=== PATIENT | male | born 1960 | race American Indian/Alaskan Native ===

== ENCOUNTER 2017-12-20 19:19 | Inpatient (IN) | payer OTHER ==
[2017-12-20 21:36] LABS: Basophils % (Auto) 0.5 % (0.0-1.8); Eosinophils # (Auto) 0.1 K/mm3 (0.0-0.4); Eosinophils % (Auto) 1.3 % (0.0-4.3); Hemoglobin 14.2 gm/dl (11.8-15.2); Lymphocytes # (Auto) 1.9 K/mm3 (1.2-5.4); Lymphocytes % (Auto) 37.4 % (13.4-35.0); Mean Corpuscular HGB Conc 33 % (32-34); Mean Corpuscular Hemoglobin 27 pg (28-32); Mean Corpuscular Volume 83 fl (84-94); Monocytes # (Auto) 0.5 K/mm3 (0.0-0.8); Platelet Count 286 K/mm3 (140-440)
[2017-12-20 21:45] LABS: BUN/Creatinine Ratio 11; Blood Urea Nitrogen 11 mg/dL (9-20); Calcium 9.3 mg/dL (8.4-10.2); Hemolysis Index 10
--- NOTE | 2017-12-20 23:32 | XRay Report ---
FINAL REPORT EXAM: XR CHEST ROUTINE 2V HISTORY: Shortness of breath TECHNIQUE: Two views of the chest Comparison: None FINDINGS: Low volumes. Heart size within normal limits. No focal infiltrates or effusions. Imaged axial skeleton is unremarkable. IMPRESSION: Low volume exam. No acute cardiopulmonary disease.
--- NOTE | 2017-12-21 06:31 | Emergency Department Report ---
ED General Adult HPI - General Chief complaint: Dyspnea/Respdistress Stated complaint: KEERTHI/PYSCH Time Seen by Provider: 12/21/17 06:22 Source: patient Mode of arrival: Ambulatory Limitations: No Limitations - History of Present Illness Initial comments: This is patient states that he had anterior chest pain tingling in his upper and lower extremities associated with rapid breathing. He also said that he had recurrent shortness of breath last night associated with the chest discomfort. He states he knows he has anxiety. He also states he had sweating. He states that he is noncompliant with the Seroquel and gabapentin. He states he's never been to the doctor for chest pain before. According to the triage record he states that he is out of gabapentin and Seroquel but thinks he might have scabies. He has a history of hypothyroidism anxiety and PTSD/depression. He does not report any cardiac workup. Apparently the patient has a history of polysubstance abuse. -: Gradual, month(s) Location: chest Radiation: other (tingling in the extremities associated with shortness of breath) Quality: dull Consistency: now resolved Improves with: none Worsens with: none Associated Symptoms: denies other symptoms, chest pain Treatments Prior to Arrival: none - Related Data Allergies Allergy/AdvReac Type Severity Reaction Status Date / Time No Known Allergies Allergy Verified 12/20/17 20:37 ED Review of Systems ROS: Stated complaint: KEERTHI/PYSCH Other details as noted in HPI Constitutional: denies: chills, fever Eyes: denies: eye pain, eye discharge, vision change ENT: denies: ear pain, throat pain Respiratory: shortness of breath. denies: cough, wheezing Cardiovascular: chest pain. denies: palpitations Endocrine: no symptoms reported Gastrointestinal: denies: abdominal pain, nausea, diarrhea Genitourinary: denies: urgency, dysuria Musculoskeletal: denies: back pain, joint swelling, arthralgia Skin: denies: rash, lesions Neurological: paresthesias. denies: headache, weakness Psychiatric: other (anxiety and hyperventilation). denies: anxiety, depression Hematological/Lymphatic: denies: easy bleeding, easy bruising ED Past Medical Hx - Past Medical History Hx Hypertension: Yes Hx Psychiatric Treatment: Yes (depression, anxiety, PTSD) Additional medical history: hypothyroidism - Surgical History Additional Surgical History: bilateral knee - Social History Smoking Status: Never Smoker Substance Use Type: Alcohol, Marijuana, Methamphetamines ED Physical Exam - General Limitations: No Limitations General appearance: alert, in no apparent distress, other (resting comfortably) - Head Head exam: Present: atraumatic, normocephalic - Eye Eye exam: Present: normal appearance, PERRL, EOMI. Absent: scleral icterus - ENT ENT exam: Present: mucous membranes moist - Neck Neck exam: Present: normal inspection. Absent: tenderness, meningismus - Respiratory Respiratory exam: Present: normal lung sounds bilaterally. Absent: respiratory distress - Cardiovascular Cardiovascular Exam: Present: regular rate, normal rhythm. Absent: systolic murmur, diastolic murmur, rubs, gallop - GI/Abdominal GI/Abdominal exam: Present: soft, normal bowel sounds. Absent: distended, tenderness, guarding, rebound, rigid - Rectal Rectal exam: Present: deferred - Extremities Exam Extremities exam: Present: normal inspection - Back Exam Back exam: Present: normal inspection - Neurological Exam Neurological exam: Present: alert, oriented X3, CN II-XII intact. Absent: motor sensory deficit - Psychiatric Psychiatric exam: Present: normal affect, normal mood - Skin Skin exam: Present: warm, dry, intact, normal color. Absent: rash ED Course Vital Signs 12/20/17 12/20/17 12/21/17 20:13 20:37 07:04 Temperature 98.4 F 98.4 F Pulse Rate 88 87 Respiratory 18 18 Rate Blood Pressure 123/80 123/80 Blood Pressure [Left] O2 Sat by Pulse 100 100 98 Oximetry 12/21/17 12/21/17 12/21/17 07:05 07:30 09:35 Temperature 97.6 F 97.7 F Pulse Rate 70 77 71 Respiratory 18 12 21 Rate Blood Pressure 125/80 Blood Pressure 125/80 109/77 [Left] O2 Sat by Pulse 98 99 98 Oximetry - Reevaluation(s) Reevaluation #1: Patient will be admitted further evaluation of his chest pain to the hospital service. 12/21/17 08:03 Reevaluation #2: Discussed with Dr. Simental, the hospitalist. She will admit. 12/21/17 09:57 ED Medical Decision Making - Lab Data Result diagrams: 12/20/17 21:11 12/20/17 21:11 Laboratory Results - last 24 hr 12/20/17 12/20/17 21:11 21:11 WBC 5.1 RBC 5.20 H Hgb 14.2 Hct 43.0 MCV 83 L MCH 27 L MCHC 33 RDW 14.0 Plt Count 286 Lymph % (Auto) 37.4 H Pender % (Auto) 9.0 H Eos % (Auto) 1.3 Baso % (Auto) 0.5 Lymph # 1.9 Pender # 0.5 Eos # 0.1 Baso # 0.0 Seg Neutrophils % 51.8 Seg Neutrophils # 2.6 Sodium 142 Potassium 4.1 Chloride 99.2 Carbon Dioxide 31 H Anion Gap 16 BUN 11 Creatinine 1.0 Estimated GFR > 60 BUN/Creatinine Ratio 11 Glucose 91 Calcium 9.3 Laboratory Results - last 24 hr 12/20/17 12/20/17 12/21/17 21:11 21:11 07:42 WBC 5.1 RBC 5.20 H Hgb 14.2 Hct 43.0 MCV 83 L MCH 27 L MCHC 33 RDW 14.0 Plt Count 286 Lymph % (Auto) 37.4 H Pender % (Auto) 9.0 H Eos % (Auto) 1.3 Baso % (Auto) 0.5 Lymph # 1.9 Pender # 0.5 Eos # 0.1 Baso # 0.0 Seg Neutrophils % 51.8 Seg Neutrophils # 2.6 PT 11.8 L INR 0.83 L APTT 26.5 D-Dimer 199.87 Sodium 142 Potassium 4.1 Chloride 99.2 Carbon Dioxide 31 H Anion Gap 16 BUN 11 Creatinine 1.0 Estimated GFR > 60 BUN/Creatinine Ratio 11 Glucose 91 Calcium 9.3 Magnesium Total Bilirubin Direct Bilirubin Indirect Bilirubin AST ALT Alkaline Phosphatase Total Creatine Kinase CK-MB (CK-2) CK-MB (CK-2) Rel Index Troponin T NT-Pro-B Natriuret Pep Total Protein Albumin Albumin/Globulin Ratio 12/21/17 07:42 WBC RBC Hgb Hct MCV MCH MCHC RDW Plt Count Lymph % (Auto) Pender % (Auto) Eos % (Auto) Baso % (Auto) Lymph # Pender # Eos # Baso # Seg Neutrophils % Seg Neutrophils # PT INR APTT D-Dimer Sodium Potassium Chloride Carbon Dioxide Anion Gap BUN Creatinine Estimated GFR BUN/Creatinine Ratio Glucose Calcium Magnesium 1.90 Total Bilirubin 0.30 Direct Bilirubin < 0.2 Indirect Bilirubin 0.1 AST 29 ALT 28 Alkaline Phosphatase 63 Total Creatine Kinase 94 CK-MB (CK-2) 1.3 CK-MB (CK-2) Rel Index 1.3 Troponin T < 0.010 NT-Pro-B Natriuret Pep 12.60 Total Protein 6.5 Albumin 3.8 L Albumin/Globulin Ratio 1.4 - EKG Data -: EKG Interpreted by Me EKG shows normal: sinus rhythm, axis, intervals, QRS complexes, ST-T waves Rate: normal - EKG Data Interpretation: normal EKG - Radiology Data Radiology results: report reviewed (chest x-ray shows no acute process) Critical care attestation.: If time is entered above; I have spent that time in minutes in the direct care of this critically ill patient, excluding procedure time. ED Disposition Clinical Impression: Psychiatric disorder, Polysubstance abuse Chest pain Qualifiers: Chest pain type: unspecified Qualified Code(s): R07.9 - Chest pain, unspecified Disposition: 09 OP ADMIT IP TO THIS HOSP Is pt being admited?: Yes Does the pt Need Aspirin: Yes Condition: Stable Instructions: Chest Pain (ED) Referrals: PRIMARY CARE, [Primary Care Provider] - 3-5 Days Time of Disposition: 09:57
--- NOTE | 2017-12-21 07:29 | XRay Report ---
FINAL REPORT EXAM: XR CHEST 1V AP HISTORY: hypertension TECHNIQUE: A portable semi-upright view the chest was obtained and compared to the study of 12/20/2017. FINDINGS: Heart size and mediastinum appear normal. The lungs are clear. Pleural fluid is not seen. The skeletal structures do not show any acute changes. IMPRESSION: No acute cardiopulmonary process.
[2017-12-21 08:10] LABS: INR 0.83 (0.87-1.13)
[2017-12-21 08:11] LABS: Partial Thromboplastin Time 26.5 Sec. (24.2-36.6)
[2017-12-21 08:19] LABS: Creatine Kinase MB 1.3 ng/mL (0.0-4.0)
[2017-12-21 08:20] LABS: Alanine Aminotransferase 28 units/L (7-56); Albumin 3.8 g/dL (3.9-5)
[2017-12-21 08:53] LABS: Bilirubin,Direct < 0.2 mg/dL (0-0.2)
[2017-12-21] MEDS ORDERED: ASPIRIN PO ONE (09:58)
[2017-12-21] MEDS ORDERED: ASPIRIN ONE (12:17)
[2017-12-21 13:29] LABS: Bilirubin,Urine NEG (Negative); Blood,Urine NEG (Negative); Color,Urine Yellow (Yellow); Mucus,Urine FEW /HPF; Protein,Urine <15 mg/dL mg/dL (Negative); Urobilinogen,Urine < 2.0 mg/dL (<2.0)
[2017-12-21 13:41] LABS: Benzodiazepines Screen,Urine PRESUMPTIVE NEGATIVE; Cocaine Screen,Urine PRESUMPTIVE NEGATIVE; Methadone Screen,Urine PRESUMPTIVE NEGATIVE; Opiate Screen,Urine PRESUMPTIVE NEGATIVE
[2017-12-21 13:55] LABS: Amphetamine Screen,Urine PRESUMPTIVE POSITIVE; Cannabinoid Screen,Urine PRESUMPTIVE POSITIVE
--- NOTE | 2017-12-21 15:21 | History and Physical Report ---
History of Present Illness Date of examination: 12/21/17 Date of admission: 12/21/17 12:13 Chief complaint: Generalized weakness, tingling and numbness all over the body History of present illness: Very pleasant 57-year-old male patient follows with [facility] With significant past medical history of hypertension, hypothyroidism, peripheral neuropathy, scabies infection Presented to the emergency room with generalized weakness and tingling and numbness of the whole body Patient denies any chest pain or shortness of breath Denies nausea vomiting or abdominal pain Complaints of generalized weakness Noncompliant with medications Past History Past Medical History: hypertension, hypothyroidism, other (depression, anxiety, PTSD) Past Surgical History: Other (bilateral knee surgery) Social history: alcohol abuse, other ( amphetamines, marijuana). denies: smoking Family history: diabetes, hypertension Medications and Allergies Allergies Allergy/AdvReac Type Severity Reaction Status Date / Time No Known Allergies Allergy Verified 12/20/17 20:37 Review of Systems Constitutional: weakness, no weight loss, no weight gain, no fever, no chills Ears, nose, mouth and throat: no nasal congestion, no nasal discharge Cardiovascular: no chest pain, no orthopnea, no palpitations, no lightheadedness Respiratory: no cough with sputum, no shortness of breath Gastrointestinal: no abdominal pain, no nausea, no vomiting Genitourinary Male: no dysuria, no hematuria Musculoskeletal: leg numbness/tingling, no myalgias, no arthritis Integumentary: rash, other (Scabies) Neurological: parathesias, numbness, tingling, no seizures, no syncope Psychiatric: anxiety, depression, other (PTSD) Endocrine: no cold intolerance, no heat intolerance, no polyphagia, no excessive thirst Hematologic/Lymphatic: no easy bruising, no easy bleeding Allergic/Immunologic: no urticaria, no allergic rhinitis Exam - Constitutional Vitals: Temp Pulse Resp BP Pulse Ox 97.7 F 65 19 123/80 95 12/21/17 09:35 12/21/17 13:30 12/21/17 13:30 12/21/17 13:30 12/21/17 13:30 General appearance: Present: no acute distress, well-nourished - EENT Eyes: Present: PERRL, EOM intact - Neck Neck: Present: supple, normal ROM - Respiratory Respiratory effort: normal Respiratory: bilateral: diminished, negative: rales, rhonchi, wheezing - Cardiovascular Rhythm: regular Heart Sounds: Present: S1 & S2 - Extremities Extremities: no ischemia, No edema - Abdominal General gastrointestinal: Present: soft, non-tender, non-distended, normal bowel sounds - Integumentary Integumentary: Present: clear, warm, rash (scabies) - Musculoskeletal Musculoskeletal: strength equal bilaterally, generalized weakness - Psychiatric Psychiatric: appropriate mood/affect, cooperative - Neurologic Neurologic: CNII-XII intact, moves all extremities Results - Labs CBC & Chem 7: 12/20/17 21:11 12/20/17 21:11 Labs: Abnormal lab results 12/20/17 12/20/17 12/21/17 Range/Units 21:11 21:11 07:42 RBC 5.20 H (3.65-5.03) M/mm3 MCV 83 L (84-94) fl MCH 27 L (28-32) pg Lymph % (Auto) 37.4 H (13.4-35.0) % [place] % (Auto) 9.0 H (0.0-7.3) % PT 11.8 L (12.2-14.9) Sec. INR 0.83 L (0.87-1.13) Carbon Dioxide 31 H (22-30) mmol/L Albumin (3.9-5) g/dL Urine WBC (Auto) (0.0-6.0) /HPF 12/21/17 12/21/17 Range/Units 07:42 13:03 RBC (3.65-5.03) M/mm3 MCV (84-94) fl MCH (28-32) pg Lymph % (Auto) (13.4-35.0) % [place] % (Auto) (0.0-7.3) % PT (12.2-14.9) Sec. INR (0.87-1.13) Carbon Dioxide (22-30) mmol/L Albumin 3.8 L (3.9-5) g/dL Urine WBC (Auto) 15.0 H (0.0-6.0) /HPF Assessment and Plan --Peripheral neuropathy; supportive care Gabapentin --History of scabies; permethrin, contact isolation Antihistamine, supportive care, ID consult --Hypertension; closely monitor blood pressures When necessary hydralazine --History of bipolar disorder; not on any medications Psych evaluation --History of depression/anxiety/PTSD Not on any medications, psych consult --History of hypothyroidism; not on any medications add Synthroid, check thyroid function tests --DVT prophylaxis; Lovenox --Polysubstance abuse; marijuana and amphetamines Counseling done advised to quit recreational drug use Closely monitor the patient and adjust the management as needed
[2017-12-21] MEDS ORDERED: NITROSTAT SL PRN (15:26)
[2017-12-21] MEDS ORDERED: MORPHINE IV PRN (15:26)
[2017-12-21] MEDS ORDERED: BENADRYL PO PRN (19:12)
[2017-12-21] MEDS ORDERED: ACTICIN TP ONE (21:00)
[2017-12-21] MEDS: LOPRESSOR PO SCH (23:26)
[2017-12-21] MEDS: NEURONTIN PO SCH (23:26)
[2017-12-22] MEDS ORDERED: SYNTHROID 112 MCG, SYNTHROID 25 MCG PO SCH (06:00)
[2017-12-22] MEDS ORDERED: SYNTHROID PO SCH ×2 (06:00)
[2017-12-22] MEDS: NEURONTIN PO SCH ×3 (06:10→22:34)
[2017-12-22 08:26] LABS: Chol/HDL Ratio 3.26 %
[2017-12-22 08:31] LABS: Free T4 (Free Thyroxine) 1.1 ng/dL (0.76-1.46)
[2017-12-22] MEDS: LOPRESSOR PO SCH ×2 (09:24→22:33)
[2017-12-22] MEDS: ZESTRIL PO SCH (09:25)
--- NOTE | 2017-12-22 10:02 | Consultation ---
History of Present Illness - Reason for Consult Consult date: 12/22/17 - History of Present Illness ENTERED BY ERROR. PATIENT SEEN BUT HE HAD NO ACTIVE RASH Microbiology: Blood cultures: Urine cultures: Respiratory cultures: Wound cultures: Stool cultures: Other: Current Antimicrobials: Zosyn Ceftriaxone Levaquin Vancomycin Cefazolin Cefepime Meropenem Clindamycin Metronidazole Previous Antimicrobials: Past History Past Medical History: hypertension, hypothyroidism, other (depression, anxiety, PTSD) Past Surgical History: Other (bilateral knee surgery) Social history: alcohol abuse, other ( amphetamines, marijuana). denies: smoking Family history: diabetes, hypertension Medications and Allergies Allergies Allergy/AdvReac Type Severity Reaction Status Date / Time No Known Allergies Allergy Verified 12/20/17 20:37 Active Meds: Active Medications Diphenhydramine HCl (Benadryl) 25 mg PO Q8H PRN PRN Reason: Itching Gabapentin (Neurontin) 300 mg PO Q8HR [facility] Last Admin: 12/22/17 06:10 Dose: 300 mg Levothyroxine Sodium (Synthroid) 112 mcg PO DAILY@0600 [facility] Last Admin: 12/22/17 06:11 Dose: 112 mcg Levothyroxine Sodium (Synthroid) 25 mcg PO DAILY@0600 [facility] Last Admin: 12/22/17 06:11 Dose: 25 mcg Lisinopril (Zestril) 2.5 mg PO QDAY [facility] Last Admin: 12/22/17 09:25 Dose: 2.5 mg Metoprolol Tartrate (Lopressor) 12.5 mg PO BID [facility] Last Admin: 12/22/17 09:24 Dose: 12.5 mg Nitroglycerin (Nitrostat) 0.4 mg SL .Q5MIN PRN PRN Reason: Chest Pain Physical Examination - Physical Exam Narrative exam: General appearance: Alert in NAD, conversant Eyes: anicteric sclerae, moist conjunctivae; no lid-lag; PERRLA HENT: Atraumatic; oropharynx clear with moist mucous membranes and no mucosal ulcerations/no oral thrush; normal hard and soft palate. Normal external ears. Neck: Trachea midline; supple, no thyromegaly or lymphadenopathy Lungs: CTA, with normal respiratory effort and no intercostal retractions CV: RRR, no murmurs Abdomen: Soft, non-tender; no masses or hepatosplenomegaly Extremities: No peripheral edema or extremity lymphadenopathy Skin: Normal temperature, turgor and texture; no rash, ulcers or subcutaneous nodules Psych: Appropriate affect, alert and oriented to person, place and time. Neuro: alert and oriented x 3. Moving all extermities Lines: No CVL / PICC - Constitutional Vitals: Vital Signs Temp Pulse Resp BP Pulse Ox 98.0 F 58 L 18 111/64 99 12/22/17 05:06 12/22/17 09:25 12/22/17 05:06 12/22/17 09:25 12/22/17 05:06 Temperature -Last 24 Hours Temperature 98.0 F Temperature 98.2 F Temperature 98.1 F Temperature 98.0 F Results - Labs CBC & Chem 7: 12/20/17 21:11 12/20/17 21:11 Labs: Abnormal lab results 12/21/17 Range/Units 13:03 Urine WBC (Auto) 15.0 H (0.0-6.0) /HPF Assessment and Plan Assessment: 1) Plan: -f Thank you for your consultation, will follow up with you. Emelina Edwards MD Infectious Diseases Specialist [facility], [place] [facility] M [phone] O [phone]
--- NOTE | 2017-12-22 16:29 | Progress Note ---
Assessment and Plan Assessment and plan: --History of scabies; no evidence of active scabies infection ID evaluated the patient --Peripheral neuropathy; continue gabapentin and supportive care, --Hypertension; well controlled continue current management --History of bipolar disorder; not on any medications Pending Psych evaluation --History of depression/anxiety/PTSD Not on any medications, pending psych consult --History of hypothyroidism; not on any medications add Synthroid, thyroid function tests within normal limits --DVT prophylaxis; Lovenox --Polysubstance abuse; marijuana and amphetamines Counseling done advised to quit recreational drug use Disposition; follow psych evaluation and recommendations Possible discharge in 1-2 days if stable History Interval history: Patient seen and examined today. Medical records reviewed Patient still complains of tingling and numbness, depressed No suicidal thoughts or ideation Pending psych evaluation ID evaluated the patient, reports no evidence of scabies WBC contact isolation, and permethrin Patient feels slightly better no new complaints Vital signs reviewed, stable Hospitalist Physical - Constitutional Vitals: Temp Pulse Resp BP Pulse Ox 98.2 F 66 20 115/59 96 12/22/17 11:30 12/22/17 11:30 12/22/17 11:30 12/22/17 11:30 12/22/17 11:30 General appearance: Present: no acute distress, well-nourished - EENT Eyes: Present: PERRL, EOM intact - Neck Neck: Present: supple, normal ROM - Respiratory Respiratory effort: normal Respiratory: bilateral: diminished, negative: rales, rhonchi, wheezing - Cardiovascular Rhythm: regular Heart Sounds: Present: S1 & S2 - Extremities Extremities: no ischemia, No edema - Abdominal General gastrointestinal: soft, non-tender, non-distended, normal bowel sounds - Integumentary Integumentary: Present: clear, warm - Psychiatric Psychiatric: appropriate mood/affect, cooperative - Neurologic Neurologic: CNII-XII intact, moves all extremities Results - Labs CBC & Chem 7: 12/20/17 21:11 12/20/17 21:11 Labs: Laboratory Last Values WBC 5.1 K/mm3 (4.5-11.0) 12/20/17 21:11 RBC 5.20 M/mm3 (3.65-5.03) H 12/20/17 21:11 Hgb 14.2 gm/dl (11.8-15.2) 12/20/17 21:11 Hct 43.0 % (35.5-45.6) 12/20/17 21:11 MCV 83 fl (84-94) L 12/20/17 21:11 MCH 27 pg (28-32) L 12/20/17 21:11 MCHC 33 % (32-34) 12/20/17 21:11 RDW 14.0 % (13.2-15.2) 12/20/17 21:11 Plt Count 286 K/mm3 (140-440) 12/20/17 21:11 Lymph % (Auto) 37.4 % (13.4-35.0) H 12/20/17 21:11 [place] % (Auto) 9.0 % (0.0-7.3) H 12/20/17 21:11 Eos % (Auto) 1.3 % (0.0-4.3) 12/20/17 21:11 Baso % (Auto) 0.5 % (0.0-1.8) 12/20/17 21:11 Lymph # 1.9 K/mm3 (1.2-5.4) 12/20/17 21:11 Burke # 0.5 K/mm3 (0.0-0.8) 12/20/17 21:11 Eos # 0.1 K/mm3 (0.0-0.4) 12/20/17 21:11 Baso # 0.0 K/mm3 (0.0-0.1) 12/20/17 21:11 Seg Neutrophils % 51.8 % (40.0-70.0) 12/20/17 21:11 Seg Neutrophils # 2.6 K/mm3 (1.8-7.7) 12/20/17 21:11 PT 11.8 Sec. (12.2-14.9) L 12/21/17 07:42 INR 0.83 (0.87-1.13) L 12/21/17 07:42 APTT 26.5 Sec. (24.2-36.6) 12/21/17 07:42 D-Dimer 199.87 ng/mlDDU (0-234) 12/21/17 07:42 Sodium 142 mmol/L (137-145) 12/20/17 21:11 Potassium 4.1 mmol/L (3.6-5.0) 12/20/17 21:11 Chloride 99.2 mmol/L (98-107) 12/20/17 21:11 Carbon Dioxide 31 mmol/L (22-30) H 12/20/17 21:11 Anion Gap 16 mmol/L 12/20/17 21:11 BUN 11 mg/dL (9-20) 12/20/17 21:11 Creatinine 1.0 mg/dL (0.8-1.5) 12/20/17 21:11 Estimated GFR > 60 ml/min 12/20/17 21:11 BUN/Creatinine Ratio 11 % 12/20/17 21:11 Glucose 91 mg/dL (75-100) 12/20/17 21:11 Calcium 9.3 mg/dL (8.4-10.2) 12/20/17 21:11 Magnesium 1.90 mg/dL (1.7-2.3) 12/21/17 07:42 Total Bilirubin 0.30 mg/dL (0.1-1.2) 12/21/17 07:42 Direct Bilirubin < 0.2 mg/dL (0-0.2) 12/21/17 07:42 Indirect Bilirubin 0.1 mg/dL 12/21/17 07:42 AST 29 units/L (5-40) 12/21/17 07:42 ALT 28 units/L (7-56) 12/21/17 07:42 Alkaline Phosphatase 63 units/L (35-129) 12/21/17 07:42 Total Creatine Kinase 94 units/L (55-170) 12/21/17 07:42 CK-MB (CK-2) 1.3 ng/mL (0.0-4.0) 12/21/17 07:42 CK-MB (CK-2) Rel Index 1.3 (0-4) 12/21/17 07:42 Troponin T < 0.010 ng/mL (0.00-0.029) 12/21/17 07:42 NT-Pro-B Natriuret Pep 12.60 pg/mL (0-900) 12/21/17 07:42 Total Protein 6.5 g/dL (6.3-8.2) 12/21/17 07:42 Albumin 3.8 g/dL (3.9-5) L 12/21/17 07:42 Albumin/Globulin Ratio 1.4 % 12/21/17 07:42 Triglycerides 103 mg/dL (2-149) 12/22/17 07:30 Cholesterol 137 mg/dL (50-199) 12/22/17 07:30 LDL Cholesterol Direct 85 mg/dL (50-130) 12/22/17 07:30 HDL Cholesterol 42 mg/dL (40-59) 12/22/17 07:30 Cholesterol/HDL Ratio 3.26 % 12/22/17 07:30 TSH 1.710 mlU/mL (0.270-4.200) 12/22/17 07:30 Free T4 1.10 ng/dL (0.76-1.46) 12/22/17 07:30 Urine Color Yellow (Yellow) 12/21/17 13:03 Urine Turbidity Clear (Clear) 12/21/17 13:03 Urine pH 6.0 (5.0-7.0) 12/21/17 13:03 Ur Specific [place] 1.013 (1.003-1.030) 12/21/17 13:03 Urine Protein <15 mg/dl mg/dL (Negative) 12/21/17 13:03 Urine Glucose (UA) Neg mg/dL (Negative) 12/21/17 13:03 Urine Ketones Neg mg/dL (Negative) 12/21/17 13:03 Urine Blood Neg (Negative) 12/21/17 13:03 Urine Nitrite Neg (Negative) 12/21/17 13:03 Urine Bilirubin Neg (Negative) 12/21/17 13:03 Urine Urobilinogen < 2.0 mg/dL (<2.0) 12/21/17 13:03 Ur Leukocyte Esterase Sm (Negative) 12/21/17 13:03 Urine WBC (Auto) 15.0 /HPF (0.0-6.0) H 12/21/17 13:03 Urine RBC (Auto) 2.0 /HPF (0.0-6.0) 12/21/17 13:03 U Epithel Cells (Auto) 1.0 /HPF (0-13.0) 12/21/17 13:03 Urine Mucus Few /HPF 12/21/17 13:03 Urine Opiates Screen Presumptive negative 12/21/17 13:03 Urine Methadone Screen Presumptive negative 12/21/17 13:03 Ur Barbiturates Screen Presumptive negative 12/21/17 13:03 Ur Phencyclidine Scrn Presumptive negative 12/21/17 13:03 Ur Amphetamines Screen Presumptive positive 12/21/17 13:03 U Benzodiazepines Scrn Presumptive negative 12/21/17 13:03 Urine Cocaine Screen Presumptive negative 12/21/17 13:03 U Marijuana (THC) Screen Presumptive positive 12/21/17 13:03 Drugs of Abuse Note Disclamer 12/21/17 13:03
[2017-12-23] MEDS: NEURONTIN PO SCH ×3 (05:11→21:53)
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
[2017-12-23] MEDS: LOPRESSOR PO SCH ×2 (11:26→21:53)
[2017-12-23] MEDS: ZESTRIL PO SCH (11:27)
--- NOTE | 2017-12-23 13:06 | Progress Note ---
Assessment and Plan Assessment and plan: --History of scabies; no evidence of active scabies infection ID evaluated the patient --Peripheral neuropathy; continue gabapentin and supportive care, --Hypertension; well controlled continue current management --History of bipolar disorder; not on any medications Pending Psych evaluation --History of depression/anxiety/PTSD Not on any medications, pending psych consult --History of hypothyroidism; not on any medications add Synthroid, thyroid function tests within normal limits --DVT prophylaxis; Lovenox --Polysubstance abuse; marijuana and amphetamines Counseling done advised to quit recreational drug use Disposition; follow psych evaluation and recommendations Possible discharge in 1-2 days if stable The patient is medically clear/stable History Interval history: No new issues overnight. Hospitalist Physical - Constitutional Vitals: Temp Pulse Resp BP Pulse Ox 98.4 F 67 18 105/61 100 12/23/17 11:19 12/23/17 11:26 12/23/17 11:19 12/23/17 11:27 12/23/17 11:19 General appearance: Present: no acute distress, well-nourished - EENT Eyes: Present: PERRL, EOM intact ENT: hearing intact, clear oral mucosa, dentition normal - Neck Neck: Present: supple, normal ROM - Respiratory Respiratory effort: normal Respiratory: bilateral: CTA - Cardiovascular Rhythm: regular Heart Sounds: Present: S1 & S2. Absent: gallop, rub - Extremities Extremities: no ischemia, No edema, Full ROM - Abdominal General gastrointestinal: soft, non-tender, non-distended, normal bowel sounds - Integumentary Integumentary: Present: clear, warm, dry - Neurologic Neurologic: CNII-XII intact, moves all extremities Results - Labs CBC & Chem 7: 12/20/17 21:11 12/20/17 21:11 Labs: Laboratory Last Values WBC 5.1 K/mm3 (4.5-11.0) 12/20/17 21:11 RBC 5.20 M/mm3 (3.65-5.03) H 12/20/17 21:11 Hgb 14.2 gm/dl (11.8-15.2) 12/20/17 21:11 Hct 43.0 % (35.5-45.6) 12/20/17 21:11 MCV 83 fl (84-94) L 12/20/17 21:11 MCH 27 pg (28-32) L 12/20/17 21:11 MCHC 33 % (32-34) 12/20/17 21:11 RDW 14.0 % (13.2-15.2) 12/20/17 21:11 Plt Count 286 K/mm3 (140-440) 12/20/17 21:11 Lymph % (Auto) 37.4 % (13.4-35.0) H 12/20/17 21:11 [place] % (Auto) 9.0 % (0.0-7.3) H 12/20/17 21:11 Eos % (Auto) 1.3 % (0.0-4.3) 12/20/17 21:11 Baso % (Auto) 0.5 % (0.0-1.8) 12/20/17 21:11 Lymph # 1.9 K/mm3 (1.2-5.4) 12/20/17 21:11 [place] # 0.5 K/mm3 (0.0-0.8) 12/20/17 21:11 Eos # 0.1 K/mm3 (0.0-0.4) 12/20/17 21:11 Baso # 0.0 K/mm3 (0.0-0.1) 12/20/17 21:11 Seg Neutrophils % 51.8 % (40.0-70.0) 12/20/17 21:11 Seg Neutrophils # 2.6 K/mm3 (1.8-7.7) 12/20/17 21:11 PT 11.8 Sec. (12.2-14.9) L 12/21/17 07:42 INR 0.83 (0.87-1.13) L 12/21/17 07:42 APTT 26.5 Sec. (24.2-36.6) 12/21/17 07:42 D-Dimer 199.87 ng/mlDDU (0-234) 12/21/17 07:42 Sodium 142 mmol/L (137-145) 12/20/17 21:11 Potassium 4.1 mmol/L (3.6-5.0) 12/20/17 21:11 Chloride 99.2 mmol/L (98-107) 12/20/17 21:11 Carbon Dioxide 31 mmol/L (22-30) H 12/20/17 21:11 Anion Gap 16 mmol/L 12/20/17 21:11 BUN 11 mg/dL (9-20) 12/20/17 21:11 Creatinine 1.0 mg/dL (0.8-1.5) 12/20/17 21:11 Estimated GFR > 60 ml/min 12/20/17 21:11 BUN/Creatinine Ratio 11 % 12/20/17 21:11 Glucose 91 mg/dL (75-100) 12/20/17 21:11 Calcium 9.3 mg/dL (8.4-10.2) 12/20/17 21:11 Magnesium 1.90 mg/dL (1.7-2.3) 12/21/17 07:42 Total Bilirubin 0.30 mg/dL (0.1-1.2) 12/21/17 07:42 Direct Bilirubin < 0.2 mg/dL (0-0.2) 12/21/17 07:42 Indirect Bilirubin 0.1 mg/dL 12/21/17 07:42 AST 29 units/L (5-40) 12/21/17 07:42 ALT 28 units/L (7-56) 12/21/17 07:42 Alkaline Phosphatase 63 units/L (35-129) 12/21/17 07:42 Total Creatine Kinase 94 units/L (55-170) 12/21/17 07:42 CK-MB (CK-2) 1.3 ng/mL (0.0-4.0) 12/21/17 07:42 CK-MB (CK-2) Rel Index 1.3 (0-4) 12/21/17 07:42 Troponin T < 0.010 ng/mL (0.00-0.029) 12/21/17 07:42 NT-Pro-B Natriuret Pep 12.60 pg/mL (0-900) 12/21/17 07:42 Total Protein 6.5 g/dL (6.3-8.2) 12/21/17 07:42 Albumin 3.8 g/dL (3.9-5) L 12/21/17 07:42 Albumin/Globulin Ratio 1.4 % 12/21/17 07:42 Triglycerides 103 mg/dL (2-149) 12/22/17 07:30 Cholesterol 137 mg/dL (50-199) 12/22/17 07:30 LDL Cholesterol Direct 85 mg/dL (50-130) 12/22/17 07:30 HDL Cholesterol 42 mg/dL (40-59) 12/22/17 07:30 Cholesterol/HDL Ratio 3.26 % 12/22/17 07:30 TSH 1.710 mlU/mL (0.270-4.200) 12/22/17 07:30 Free T4 1.10 ng/dL (0.76-1.46) 12/22/17 07:30 Urine Color Yellow (Yellow) 12/21/17 13:03 Urine Turbidity Clear (Clear) 12/21/17 13:03 Urine pH 6.0 (5.0-7.0) 12/21/17 13:03 Ur Specific [place] 1.013 (1.003-1.030) 12/21/17 13:03 Urine Protein <15 mg/dl mg/dL (Negative) 12/21/17 13:03 Urine Glucose (UA) Neg mg/dL (Negative) 12/21/17 13:03 Urine Ketones Neg mg/dL (Negative) 12/21/17 13:03 Urine Blood Neg (Negative) 12/21/17 13:03 Urine Nitrite Neg (Negative) 12/21/17 13:03 Urine Bilirubin Neg (Negative) 12/21/17 13:03 Urine Urobilinogen < 2.0 mg/dL (<2.0) 12/21/17 13:03 Ur Leukocyte Esterase Sm (Negative) 12/21/17 13:03 Urine WBC (Auto) 15.0 /HPF (0.0-6.0) H 12/21/17 13:03 Urine RBC (Auto) 2.0 /HPF (0.0-6.0) 12/21/17 13:03 U Epithel Cells (Auto) 1.0 /HPF (0-13.0) 12/21/17 13:03 Urine Mucus Few /HPF 12/21/17 13:03 Urine Opiates Screen Presumptive negative 12/21/17 13:03 Urine Methadone Screen Presumptive negative 12/21/17 13:03 Ur Barbiturates Screen Presumptive negative 12/21/17 13:03 Ur Phencyclidine Scrn Presumptive negative 12/21/17 13:03 Ur Amphetamines Screen Presumptive positive 12/21/17 13:03 U Benzodiazepines Scrn Presumptive negative 12/21/17 13:03 Urine Cocaine Screen Presumptive negative 12/21/17 13:03 U Marijuana (THC) Screen Presumptive positive 12/21/17 13:03 Drugs of Abuse Note Disclamer 12/21/17 13:03
[2017-12-23] MEDS: REMERON PO SCH (21:53)
[2017-12-24] MEDS: NEURONTIN PO SCH ×3 (05:39→22:36)
--- NOTE | 2017-12-24 12:01 | Progress Note ---
Assessment and Plan Assessment and plan: --History of scabies; no evidence of active scabies infection ID evaluated the patient --Peripheral neuropathy; continue gabapentin and supportive care, --Hypertension; well controlled continue current management --History of bipolar disorder Psych following. --History of depression/anxiety/PTSD Remeron 15 mg daily started by psych. --History of hypothyroidism; not on any medications add Synthroid, thyroid function tests within normal limits --DVT prophylaxis; Lovenox --Polysubstance abuse; marijuana and amphetamines Counseling done advised to quit recreational drug use Disposition; follow psych evaluation and recommendations Possible discharge in 1-2 days if stable The patient is medically clear/stable History Interval history: No new issues overnight. Hospitalist Physical - Constitutional Vitals: Temp Pulse Resp BP Pulse Ox 98.0 F 70 18 120/69 100 12/24/17 10:21 12/24/17 10:21 12/24/17 10:21 12/24/17 10:21 12/24/17 10:21 General appearance: Present: no acute distress, well-nourished - EENT Eyes: Present: PERRL, EOM intact ENT: hearing intact, clear oral mucosa, dentition normal - Neck Neck: Present: supple, normal ROM - Respiratory Respiratory effort: normal Respiratory: bilateral: CTA - Cardiovascular Rhythm: regular Heart Sounds: Present: S1 & S2. Absent: gallop, rub - Extremities Extremities: no ischemia, No edema, Full ROM - Abdominal General gastrointestinal: soft, non-tender, non-distended, normal bowel sounds - Integumentary Integumentary: Present: clear, warm, dry - Neurologic Neurologic: CNII-XII intact, moves all extremities Results - Labs CBC & Chem 7: 12/20/17 21:11 12/20/17 21:11 Labs: Laboratory Last Values WBC 5.1 K/mm3 (4.5-11.0) 12/20/17 21:11 RBC 5.20 M/mm3 (3.65-5.03) H 12/20/17 21:11 Hgb 14.2 gm/dl (11.8-15.2) 12/20/17 21:11 Hct 43.0 % (35.5-45.6) 12/20/17 21:11 MCV 83 fl (84-94) L 12/20/17 21:11 MCH 27 pg (28-32) L 12/20/17 21:11 MCHC 33 % (32-34) 12/20/17 21:11 RDW 14.0 % (13.2-15.2) 12/20/17 21:11 Plt Count 286 K/mm3 (140-440) 12/20/17 21:11 Lymph % (Auto) 37.4 % (13.4-35.0) H 12/20/17 21:11 [place] % (Auto) 9.0 % (0.0-7.3) H 12/20/17 21:11 Eos % (Auto) 1.3 % (0.0-4.3) 12/20/17 21:11 Baso % (Auto) 0.5 % (0.0-1.8) 12/20/17 21:11 Lymph # 1.9 K/mm3 (1.2-5.4) 12/20/17 21:11 [place] # 0.5 K/mm3 (0.0-0.8) 12/20/17 21:11 Eos # 0.1 K/mm3 (0.0-0.4) 12/20/17 21:11 Baso # 0.0 K/mm3 (0.0-0.1) 12/20/17 21:11 Seg Neutrophils % 51.8 % (40.0-70.0) 12/20/17 21:11 Seg Neutrophils # 2.6 K/mm3 (1.8-7.7) 12/20/17 21:11 PT 11.8 Sec. (12.2-14.9) L 12/21/17 07:42 INR 0.83 (0.87-1.13) L 12/21/17 07:42 APTT 26.5 Sec. (24.2-36.6) 12/21/17 07:42 D-Dimer 199.87 ng/mlDDU (0-234) 12/21/17 07:42 Sodium 142 mmol/L (137-145) 12/20/17 21:11 Potassium 4.1 mmol/L (3.6-5.0) 12/20/17 21:11 Chloride 99.2 mmol/L (98-107) 12/20/17 21:11 Carbon Dioxide 31 mmol/L (22-30) H 12/20/17 21:11 Anion Gap 16 mmol/L 12/20/17 21:11 BUN 11 mg/dL (9-20) 12/20/17 21:11 Creatinine 1.0 mg/dL (0.8-1.5) 12/20/17 21:11 Estimated GFR > 60 ml/min 12/20/17 21:11 BUN/Creatinine Ratio 11 % 12/20/17 21:11 Glucose 91 mg/dL (75-100) 12/20/17 21:11 Calcium 9.3 mg/dL (8.4-10.2) 12/20/17 21:11 Magnesium 1.90 mg/dL (1.7-2.3) 12/21/17 07:42 Total Bilirubin 0.30 mg/dL (0.1-1.2) 12/21/17 07:42 Direct Bilirubin < 0.2 mg/dL (0-0.2) 12/21/17 07:42 Indirect Bilirubin 0.1 mg/dL 12/21/17 07:42 AST 29 units/L (5-40) 12/21/17 07:42 ALT 28 units/L (7-56) 12/21/17 07:42 Alkaline Phosphatase 63 units/L (35-129) 12/21/17 07:42 Total Creatine Kinase 94 units/L (55-170) 12/21/17 07:42 CK-MB (CK-2) 1.3 ng/mL (0.0-4.0) 12/21/17 07:42 CK-MB (CK-2) Rel Index 1.3 (0-4) 12/21/17 07:42 Troponin T < 0.010 ng/mL (0.00-0.029) 12/21/17 07:42 NT-Pro-B Natriuret Pep 12.60 pg/mL (0-900) 12/21/17 07:42 Total Protein 6.5 g/dL (6.3-8.2) 12/21/17 07:42 Albumin 3.8 g/dL (3.9-5) L 12/21/17 07:42 Albumin/Globulin Ratio 1.4 % 12/21/17 07:42 Triglycerides 103 mg/dL (2-149) 12/22/17 07:30 Cholesterol 137 mg/dL (50-199) 12/22/17 07:30 LDL Cholesterol Direct 85 mg/dL (50-130) 12/22/17 07:30 HDL Cholesterol 42 mg/dL (40-59) 12/22/17 07:30 Cholesterol/HDL Ratio 3.26 % 12/22/17 07:30 TSH 1.710 mlU/mL (0.270-4.200) 12/22/17 07:30 Free T4 1.10 ng/dL (0.76-1.46) 12/22/17 07:30 Urine Color Yellow (Yellow) 12/21/17 13:03 Urine Turbidity Clear (Clear) 12/21/17 13:03 Urine pH 6.0 (5.0-7.0) 12/21/17 13:03 Ur Specific [place] 1.013 (1.003-1.030) 12/21/17 13:03 Urine Protein <15 mg/dl mg/dL (Negative) 12/21/17 13:03 Urine Glucose (UA) Neg mg/dL (Negative) 12/21/17 13:03 Urine Ketones Neg mg/dL (Negative) 12/21/17 13:03 Urine Blood Neg (Negative) 12/21/17 13:03 Urine Nitrite Neg (Negative) 12/21/17 13:03 Urine Bilirubin Neg (Negative) 12/21/17 13:03 Urine Urobilinogen < 2.0 mg/dL (<2.0) 12/21/17 13:03 Ur Leukocyte Esterase Sm (Negative) 12/21/17 13:03 Urine WBC (Auto) 15.0 /HPF (0.0-6.0) H 12/21/17 13:03 Urine RBC (Auto) 2.0 /HPF (0.0-6.0) 12/21/17 13:03 U Epithel Cells (Auto) 1.0 /HPF (0-13.0) 12/21/17 13:03 Urine Mucus Few /HPF 12/21/17 13:03 Urine Opiates Screen Presumptive negative 12/21/17 13:03 Urine Methadone Screen Presumptive negative 12/21/17 13:03 Ur Barbiturates Screen Presumptive negative 12/21/17 13:03 Ur Phencyclidine Scrn Presumptive negative 12/21/17 13:03 Ur Amphetamines Screen Presumptive positive 12/21/17 13:03 U Benzodiazepines Scrn Presumptive negative 12/21/17 13:03 Urine Cocaine Screen Presumptive negative 12/21/17 13:03 U Marijuana (THC) Screen Presumptive positive 12/21/17 13:03 Drugs of Abuse Note Disclamer 12/21/17 13:03
[2017-12-24] MEDS: LOPRESSOR PO SCH ×2 (12:37→22:36)
[2017-12-24] MEDS: ZESTRIL PO SCH (12:37)
[2017-12-24] MEDS: REMERON PO SCH (22:36)
[2017-12-25] MEDS: NEURONTIN PO SCH ×3 (06:59→22:01)
[2017-12-25] MEDS: LOPRESSOR PO SCH ×2 (09:53→22:02)
[2017-12-25] MEDS: ZESTRIL PO SCH (09:55)
--- NOTE | 2017-12-25 11:58 | Progress Note ---
Subjective - Reason for Consult Consult date: 12/25/17 Reason for consult: Psychiatry Follow-up - Chief Complaint Chief complaint: "I feel so much" 57 y/o/ AA male presenting to the ER for generalized weakness. Psychiatry was consulted to see patient for Mood DOs and PTSD. Today the patient is calm and cooperative during the assessment. He stated that he feel much better today "mentally." He denies SI/HI's and AVH's. He denies any nightmares at this time. He was asked about recreational dug use, he stated, "I have used in past." He denies any sides effects of his medications. Mental Status Exam - Vital signs Last Vital Signs Temp 99.3 F 12/25/17 06:29 Pulse 59 L 12/25/17 09:55 Resp 18 12/25/17 06:29 BP 93/56 12/25/17 09:55 Pulse Ox 98 12/25/17 06:29 - Exam Narrative exam: MSE: Appearance: calm, cooperative Behavior: regular poor eye contact Speech: regular rate and tone Mood: "better" Affect: congruent to mood Thought Process: linear Thought Content: denies SI/HI's and AVH's Motor Activity: sitting up in bed Cognition: A/O x 3 Insight: fair Judgment: fair Assessment and Plan Impression: Unspecified Mood DO. Hx of PTSD. Cannabis Use Do. Substance Use DO ( amphetamines). Today the patient is calm and cooperative during the assessment. The patient was positive for marijuana and amphetamines. DDx: R/O Bipolar DO, MDD, R/O Substance Induced Mood DO Recommendation/Plan: Reevaluate 1013 in 24 hours to determine proper dispo once medically clear. Continue Remeron 15 mg PO HS for depression/PTSD. Discussed possible suicidality/medication induced michelle with patient reference Remeron.
--- NOTE | 2017-12-25 13:53 | Progress Note ---
Assessment and Plan Assessment and plan: --History of scabies; no evidence of active scabies infection ID evaluated the patient --Peripheral neuropathy; continue gabapentin and supportive care, --Hypertension; well controlled continue current management --History of bipolar disorder Psych following. --History of depression/anxiety/PTSD Remeron 15 mg daily started by psych. --History of hypothyroidism; not on any medications add Synthroid, thyroid function tests within normal limits --DVT prophylaxis; Lovenox --Polysubstance abuse; marijuana and amphetamines Counseling done advised to quit recreational drug use Disposition; follow psych evaluation and recommendations The patient is medically clear/stable History Interval history: No new issues overnight. Hospitalist Physical - Constitutional Vitals: Temp Pulse Resp BP Pulse Ox 98.1 F 63 18 103/62 100 12/25/17 11:49 12/25/17 11:49 12/25/17 11:49 12/25/17 11:49 12/25/17 11:49 General appearance: Present: no acute distress, well-nourished - EENT Eyes: Present: PERRL, EOM intact ENT: hearing intact, clear oral mucosa, dentition normal - Neck Neck: Present: supple, normal ROM - Respiratory Respiratory effort: normal Respiratory: bilateral: CTA - Cardiovascular Rhythm: regular Heart Sounds: Present: S1 & S2. Absent: gallop, rub - Extremities Extremities: no ischemia, No edema, Full ROM - Abdominal General gastrointestinal: soft, non-tender, non-distended, normal bowel sounds - Integumentary Integumentary: Present: clear, warm, dry - Neurologic Neurologic: CNII-XII intact, moves all extremities Results - Labs CBC & Chem 7: 12/20/17 21:11 12/20/17 21:11 Labs: Laboratory Last Values WBC 5.1 K/mm3 (4.5-11.0) 12/20/17 21:11 RBC 5.20 M/mm3 (3.65-5.03) H 12/20/17 21:11 Hgb 14.2 gm/dl (11.8-15.2) 12/20/17 21:11 Hct 43.0 % (35.5-45.6) 12/20/17 21:11 MCV 83 fl (84-94) L 12/20/17 21:11 MCH 27 pg (28-32) L 12/20/17 21:11 MCHC 33 % (32-34) 12/20/17 21:11 RDW 14.0 % (13.2-15.2) 12/20/17 21:11 Plt Count 286 K/mm3 (140-440) 12/20/17 21:11 Lymph % (Auto) 37.4 % (13.4-35.0) H 12/20/17 21:11 [place] % (Auto) 9.0 % (0.0-7.3) H 12/20/17 21:11 Eos % (Auto) 1.3 % (0.0-4.3) 12/20/17 21:11 Baso % (Auto) 0.5 % (0.0-1.8) 12/20/17 21:11 Lymph # 1.9 K/mm3 (1.2-5.4) 12/20/17 21:11 [place] # 0.5 K/mm3 (0.0-0.8) 12/20/17 21:11 Eos # 0.1 K/mm3 (0.0-0.4) 12/20/17 21:11 Baso # 0.0 K/mm3 (0.0-0.1) 12/20/17 21:11 Seg Neutrophils % 51.8 % (40.0-70.0) 12/20/17 21:11 Seg Neutrophils # 2.6 K/mm3 (1.8-7.7) 12/20/17 21:11 PT 11.8 Sec. (12.2-14.9) L 12/21/17 07:42 INR 0.83 (0.87-1.13) L 12/21/17 07:42 APTT 26.5 Sec. (24.2-36.6) 12/21/17 07:42 D-Dimer 199.87 ng/mlDDU (0-234) 12/21/17 07:42 Sodium 142 mmol/L (137-145) 12/20/17 21:11 Potassium 4.1 mmol/L (3.6-5.0) 12/20/17 21:11 Chloride 99.2 mmol/L (98-107) 12/20/17 21:11 Carbon Dioxide 31 mmol/L (22-30) H 12/20/17 21:11 Anion Gap 16 mmol/L 12/20/17 21:11 BUN 11 mg/dL (9-20) 12/20/17 21:11 Creatinine 1.0 mg/dL (0.8-1.5) 12/20/17 21:11 Estimated GFR > 60 ml/min 12/20/17 21:11 BUN/Creatinine Ratio 11 % 12/20/17 21:11 Glucose 91 mg/dL (75-100) 12/20/17 21:11 Calcium 9.3 mg/dL (8.4-10.2) 12/20/17 21:11 Magnesium 1.90 mg/dL (1.7-2.3) 12/21/17 07:42 Total Bilirubin 0.30 mg/dL (0.1-1.2) 12/21/17 07:42 Direct Bilirubin < 0.2 mg/dL (0-0.2) 12/21/17 07:42 Indirect Bilirubin 0.1 mg/dL 12/21/17 07:42 AST 29 units/L (5-40) 12/21/17 07:42 ALT 28 units/L (7-56) 12/21/17 07:42 Alkaline Phosphatase 63 units/L (35-129) 12/21/17 07:42 Total Creatine Kinase 94 units/L (55-170) 12/21/17 07:42 CK-MB (CK-2) 1.3 ng/mL (0.0-4.0) 12/21/17 07:42 CK-MB (CK-2) Rel Index 1.3 (0-4) 12/21/17 07:42 Troponin T < 0.010 ng/mL (0.00-0.029) 12/21/17 07:42 NT-Pro-B Natriuret Pep 12.60 pg/mL (0-900) 12/21/17 07:42 Total Protein 6.5 g/dL (6.3-8.2) 12/21/17 07:42 Albumin 3.8 g/dL (3.9-5) L 12/21/17 07:42 Albumin/Globulin Ratio 1.4 % 12/21/17 07:42 Triglycerides 103 mg/dL (2-149) 12/22/17 07:30 Cholesterol 137 mg/dL (50-199) 12/22/17 07:30 LDL Cholesterol Direct 85 mg/dL (50-130) 12/22/17 07:30 HDL Cholesterol 42 mg/dL (40-59) 12/22/17 07:30 Cholesterol/HDL Ratio 3.26 % 12/22/17 07:30 TSH 1.710 mlU/mL (0.270-4.200) 12/22/17 07:30 Free T4 1.10 ng/dL (0.76-1.46) 12/22/17 07:30 Urine Color Yellow (Yellow) 12/21/17 13:03 Urine Turbidity Clear (Clear) 12/21/17 13:03 Urine pH 6.0 (5.0-7.0) 12/21/17 13:03 Ur Specific [place] 1.013 (1.003-1.030) 12/21/17 13:03 Urine Protein <15 mg/dl mg/dL (Negative) 12/21/17 13:03 Urine Glucose (UA) Neg mg/dL (Negative) 12/21/17 13:03 Urine Ketones Neg mg/dL (Negative) 12/21/17 13:03 Urine Blood Neg (Negative) 12/21/17 13:03 Urine Nitrite Neg (Negative) 12/21/17 13:03 Urine Bilirubin Neg (Negative) 12/21/17 13:03 Urine Urobilinogen < 2.0 mg/dL (<2.0) 12/21/17 13:03 Ur Leukocyte Esterase Sm (Negative) 12/21/17 13:03 Urine WBC (Auto) 15.0 /HPF (0.0-6.0) H 12/21/17 13:03 Urine RBC (Auto) 2.0 /HPF (0.0-6.0) 12/21/17 13:03 U Epithel Cells (Auto) 1.0 /HPF (0-13.0) 12/21/17 13:03 Urine Mucus Few /HPF 12/21/17 13:03 Urine Opiates Screen Presumptive negative 12/21/17 13:03 Urine Methadone Screen Presumptive negative 12/21/17 13:03 Ur Barbiturates Screen Presumptive negative 12/21/17 13:03 Ur Phencyclidine Scrn Presumptive negative 12/21/17 13:03 Ur Amphetamines Screen Presumptive positive 12/21/17 13:03 U Benzodiazepines Scrn Presumptive negative 12/21/17 13:03 Urine Cocaine Screen Presumptive negative 12/21/17 13:03 U Marijuana (THC) Screen Presumptive positive 12/21/17 13:03 Drugs of Abuse Note Disclamer 12/21/17 13:03
[2017-12-25] MEDS: REMERON PO SCH (22:02)
[2017-12-26] MEDS: NEURONTIN PO SCH (06:05)
--- NOTE | 2017-12-26 10:40 | Progress Note ---
Assessment and Plan Assessment and plan: --History of scabies; no evidence of active scabies infection ID evaluated the patient --Peripheral neuropathy; continue gabapentin and supportive care, --Hypertension; well controlled continue current management --History of bipolar disorder Psych following. --History of depression/anxiety/PTSD Remeron 15 mg daily started by psych. Psychiatry recommends 1013 --History of hypothyroidism; not on any medications add Synthroid, thyroid function tests within normal limits --DVT prophylaxis; Lovenox --Polysubstance abuse; marijuana and amphetamines Counseling done advised to quit recreational drug use Disposition; follow psych evaluation and recommendations The patient is medically clear/stable History Interval history: No new issues overnight. Hospitalist Physical - Constitutional Vitals: Temp Pulse Resp BP Pulse Ox 97.4 F L 53 L 14 99/69 97 12/26/17 06:01 12/26/17 06:01 12/26/17 06:01 12/26/17 06:01 12/26/17 06:01 General appearance: Present: no acute distress, well-nourished - EENT Eyes: Present: PERRL, EOM intact ENT: hearing intact, clear oral mucosa, dentition normal - Neck Neck: Present: supple, normal ROM - Respiratory Respiratory effort: normal Respiratory: bilateral: CTA - Cardiovascular Rhythm: regular Heart Sounds: Present: S1 & S2. Absent: gallop, rub - Extremities Extremities: no ischemia, No edema, Full ROM - Abdominal General gastrointestinal: soft, non-tender, non-distended, normal bowel sounds - Integumentary Integumentary: Present: clear, warm, dry - Neurologic Neurologic: CNII-XII intact, moves all extremities Results - Labs CBC & Chem 7: 12/20/17 21:11 12/20/17 21:11 Labs: Laboratory Last Values WBC 5.1 K/mm3 (4.5-11.0) 12/20/17 21:11 RBC 5.20 M/mm3 (3.65-5.03) H 12/20/17 21:11 Hgb 14.2 gm/dl (11.8-15.2) 12/20/17 21:11 Hct 43.0 % (35.5-45.6) 12/20/17 21:11 MCV 83 fl (84-94) L 12/20/17 21:11 MCH 27 pg (28-32) L 12/20/17 21:11 MCHC 33 % (32-34) 12/20/17 21:11 RDW 14.0 % (13.2-15.2) 12/20/17 21:11 Plt Count 286 K/mm3 (140-440) 12/20/17 21:11 Lymph % (Auto) 37.4 % (13.4-35.0) H 12/20/17 21:11 [place] % (Auto) 9.0 % (0.0-7.3) H 12/20/17 21:11 Eos % (Auto) 1.3 % (0.0-4.3) 12/20/17 21:11 Baso % (Auto) 0.5 % (0.0-1.8) 12/20/17 21:11 Lymph # 1.9 K/mm3 (1.2-5.4) 12/20/17 21:11 [place] # 0.5 K/mm3 (0.0-0.8) 12/20/17 21:11 Eos # 0.1 K/mm3 (0.0-0.4) 12/20/17 21:11 Baso # 0.0 K/mm3 (0.0-0.1) 12/20/17 21:11 Seg Neutrophils % 51.8 % (40.0-70.0) 12/20/17 21:11 Seg Neutrophils # 2.6 K/mm3 (1.8-7.7) 12/20/17 21:11 PT 11.8 Sec. (12.2-14.9) L 12/21/17 07:42 INR 0.83 (0.87-1.13) L 12/21/17 07:42 APTT 26.5 Sec. (24.2-36.6) 12/21/17 07:42 D-Dimer 199.87 ng/mlDDU (0-234) 12/21/17 07:42 Sodium 142 mmol/L (137-145) 12/20/17 21:11 Potassium 4.1 mmol/L (3.6-5.0) 12/20/17 21:11 Chloride 99.2 mmol/L (98-107) 12/20/17 21:11 Carbon Dioxide 31 mmol/L (22-30) H 12/20/17 21:11 Anion Gap 16 mmol/L 12/20/17 21:11 BUN 11 mg/dL (9-20) 12/20/17 21:11 Creatinine 1.0 mg/dL (0.8-1.5) 12/20/17 21:11 Estimated GFR > 60 ml/min 12/20/17 21:11 BUN/Creatinine Ratio 11 % 12/20/17 21:11 Glucose 91 mg/dL (75-100) 12/20/17 21:11 Calcium 9.3 mg/dL (8.4-10.2) 12/20/17 21:11 Magnesium 1.90 mg/dL (1.7-2.3) 12/21/17 07:42 Total Bilirubin 0.30 mg/dL (0.1-1.2) 12/21/17 07:42 Direct Bilirubin < 0.2 mg/dL (0-0.2) 12/21/17 07:42 Indirect Bilirubin 0.1 mg/dL 12/21/17 07:42 AST 29 units/L (5-40) 12/21/17 07:42 ALT 28 units/L (7-56) 12/21/17 07:42 Alkaline Phosphatase 63 units/L (35-129) 12/21/17 07:42 Total Creatine Kinase 94 units/L (55-170) 12/21/17 07:42 CK-MB (CK-2) 1.3 ng/mL (0.0-4.0) 12/21/17 07:42 CK-MB (CK-2) Rel Index 1.3 (0-4) 12/21/17 07:42 Troponin T < 0.010 ng/mL (0.00-0.029) 12/21/17 07:42 NT-Pro-B Natriuret Pep 12.60 pg/mL (0-900) 12/21/17 07:42 Total Protein 6.5 g/dL (6.3-8.2) 12/21/17 07:42 Albumin 3.8 g/dL (3.9-5) L 12/21/17 07:42 Albumin/Globulin Ratio 1.4 % 12/21/17 07:42 Triglycerides 103 mg/dL (2-149) 12/22/17 07:30 Cholesterol 137 mg/dL (50-199) 12/22/17 07:30 LDL Cholesterol Direct 85 mg/dL (50-130) 12/22/17 07:30 HDL Cholesterol 42 mg/dL (40-59) 12/22/17 07:30 Cholesterol/HDL Ratio 3.26 % 12/22/17 07:30 TSH 1.710 mlU/mL (0.270-4.200) 12/22/17 07:30 Free T4 1.10 ng/dL (0.76-1.46) 12/22/17 07:30 Urine Color Yellow (Yellow) 12/21/17 13:03 Urine Turbidity Clear (Clear) 12/21/17 13:03 Urine pH 6.0 (5.0-7.0) 12/21/17 13:03 Ur Specific [place] 1.013 (1.003-1.030) 12/21/17 13:03 Urine Protein <15 mg/dl mg/dL (Negative) 12/21/17 13:03 Urine Glucose (UA) Neg mg/dL (Negative) 12/21/17 13:03 Urine Ketones Neg mg/dL (Negative) 12/21/17 13:03 Urine Blood Neg (Negative) 12/21/17 13:03 Urine Nitrite Neg (Negative) 12/21/17 13:03 Urine Bilirubin Neg (Negative) 12/21/17 13:03 Urine Urobilinogen < 2.0 mg/dL (<2.0) 12/21/17 13:03 Ur Leukocyte Esterase Sm (Negative) 12/21/17 13:03 Urine WBC (Auto) 15.0 /HPF (0.0-6.0) H 12/21/17 13:03 Urine RBC (Auto) 2.0 /HPF (0.0-6.0) 12/21/17 13:03 U Epithel Cells (Auto) 1.0 /HPF (0-13.0) 12/21/17 13:03 Urine Mucus Few /HPF 12/21/17 13:03 Urine Opiates Screen Presumptive negative 12/21/17 13:03 Urine Methadone Screen Presumptive negative 12/21/17 13:03 Ur Barbiturates Screen Presumptive negative 12/21/17 13:03 Ur Phencyclidine Scrn Presumptive negative 12/21/17 13:03 Ur Amphetamines Screen Presumptive positive 07/22/18 13:03 U Benzodiazepines Scrn Presumptive negative 12/21/17 13:03 Urine Cocaine Screen Presumptive negative 12/21/17 13:03 U Marijuana (THC) Screen Presumptive positive 12/21/17 13:03 Drugs of Abuse Note Disclamer 12/21/17 13:03
[2017-12-26] MEDS: ZESTRIL PO SCH (10:55)
[2017-12-26] MEDS: LOPRESSOR PO SCH ×2 (10:58→22:33)
--- NOTE | 2017-12-26 12:25 | Progress Note ---
Subjective - Reason for Consult Consult date: 12/26/17 Reason for consult: Psychiatry Follow-up - Chief Complaint Chief complaint: "I don't know what to think" 57 y/o/ AA male presenting to the ER for generalized weakness. Psychiatry was consulted to see patient for Mood DOs and PTSD. Today the patient is calm and cooperative, but withdrawn during the assessment. He stated that his family want him to get mental health assistance. He stated that he plan to return home and "isolate" himself from everyone and hope for the best. He is adamant that isolation is best for him. He denies SI/HI's and AVH's. He denies any side effects of his medication. Mental Status Exam - Vital signs Last Vital Signs Temp 97.4 F L 12/26/17 06:01 Pulse 53 L 12/26/17 06:01 Resp 14 12/26/17 06:01 BP 115/78 12/26/17 10:47 Pulse Ox 97 12/26/17 06:01 - Exam Narrative exam: MSE: Appearance: calm, cooperative Behavior: regular poor eye contact Speech: regular rate and tone Mood: "okay, I think" withdrawn Affect: congruent to mood Thought Process: circumstantial Thought Content: denies SI/HI's and AVH's Motor Activity: sitting up in bed Cognition: A/O x 3 Insight: fair Judgment: fair Assessment and Plan Impression: Unspecified Mood DO. Hx of PTSD. Cannabis Use Do. Substance Use DO ( amphetamines). Today the patient is calm and cooperative, but withdrawn during the assessment. The patient denies SI's, but he isn't safe to return to the community at this time. He feels like isolation is best treatment for him at this time. The patient was positive for marijuana and amphetamines. DDx: R/O Bipolar DO, MDD, R/O Substance Induced Mood DO Recommendation/Plan: Continue 1013 with placement to inpatient psy services. Continue Remeron 15 mg PO HS for depression/PTSD. Discussed possible suicidality /medication induced michelle with patient reference Remeron.
[2017-12-26] MEDS: REMERON PO SCH (22:31)
[2017-12-27] MEDS: LOPRESSOR PO SCH ×2 (11:05→22:32)
[2017-12-27] MEDS: ZESTRIL PO SCH (11:06)
--- NOTE | 2017-12-27 12:09 | Progress Note ---
Assessment and Plan Assessment and plan: --History of scabies; no evidence of active scabies infection ID evaluated the patient --Peripheral neuropathy; continue gabapentin and supportive care, --Hypertension; well controlled continue current management --History of bipolar disorder Psych following. --History of depression/anxiety/PTSD Remeron 15 mg daily started by psych. Psychiatry recommends 1013 --History of hypothyroidism; not on any medications add Synthroid, thyroid function tests within normal limits --DVT prophylaxis; Lovenox --Polysubstance abuse; marijuana and amphetamines Counseling done advised to quit recreational drug use Disposition; follow psych evaluation and recommendations The patient is medically clear/stable History Interval history: No new issues overnight. Hospitalist Physical - Constitutional Vitals: Temp Pulse Resp BP Pulse Ox 97.8 F 63 18 111/63 97 12/27/17 07:53 12/27/17 11:06 12/27/17 07:53 12/27/17 11:06 12/27/17 07:53 General appearance: Present: no acute distress, well-nourished - EENT Eyes: Present: PERRL, EOM intact ENT: hearing intact, clear oral mucosa, dentition normal - Neck Neck: Present: supple, normal ROM - Respiratory Respiratory effort: normal Respiratory: bilateral: CTA - Cardiovascular Rhythm: regular Heart Sounds: Present: S1 & S2. Absent: gallop, rub - Extremities Extremities: no ischemia, No edema, Full ROM - Abdominal General gastrointestinal: soft, non-tender, non-distended, normal bowel sounds - Integumentary Integumentary: Present: clear, warm, dry - Neurologic Neurologic: CNII-XII intact, moves all extremities Results - Labs CBC & Chem 7: 12/20/17 21:11 12/20/17 21:11 Labs: Laboratory Last Values WBC 5.1 K/mm3 (4.5-11.0) 12/20/17 21:11 RBC 5.20 M/mm3 (3.65-5.03) H 12/20/17 21:11 Hgb 14.2 gm/dl (11.8-15.2) 12/20/17 21:11 Hct 43.0 % (35.5-45.6) 12/20/17 21:11 MCV 83 fl (84-94) L 12/20/17 21:11 MCH 27 pg (28-32) L 12/20/17 21:11 MCHC 33 % (32-34) 12/20/17 21:11 RDW 14.0 % (13.2-15.2) 12/20/17 21:11 Plt Count 286 K/mm3 (140-440) 12/20/17 21:11 Lymph % (Auto) 37.4 % (13.4-35.0) H 12/20/17 21:11 [place] % (Auto) 9.0 % (0.0-7.3) H 12/20/17 21:11 Eos % (Auto) 1.3 % (0.0-4.3) 12/20/17 21:11 Baso % (Auto) 0.5 % (0.0-1.8) 12/20/17 21:11 Lymph # 1.9 K/mm3 (1.2-5.4) 12/20/17 21:11 [place] # 0.5 K/mm3 (0.0-0.8) 12/20/17 21:11 Eos # 0.1 K/mm3 (0.0-0.4) 12/20/17 21:11 Baso # 0.0 K/mm3 (0.0-0.1) 12/20/17 21:11 Seg Neutrophils % 51.8 % (40.0-70.0) 12/20/17 21:11 Seg Neutrophils # 2.6 K/mm3 (1.8-7.7) 12/20/17 21:11 PT 11.8 Sec. (12.2-14.9) L 12/21/17 07:42 INR 0.83 (0.87-1.13) L 12/21/17 07:42 APTT 26.5 Sec. (24.2-36.6) 12/21/17 07:42 D-Dimer 199.87 ng/mlDDU (0-234) 12/21/17 07:42 Sodium 142 mmol/L (137-145) 12/20/17 21:11 Potassium 4.1 mmol/L (3.6-5.0) 12/20/17 21:11 Chloride 99.2 mmol/L (98-107) 12/20/17 21:11 Carbon Dioxide 31 mmol/L (22-30) H 07/21/18 21:11 Anion Gap 16 mmol/L 12/20/17 21:11 BUN 11 mg/dL (9-20) 12/20/17 21:11 Creatinine 1.0 mg/dL (0.8-1.5) 12/20/17 21:11 Estimated GFR > 60 ml/min 12/20/17 21:11 BUN/Creatinine Ratio 11 % 12/20/17 21:11 Glucose 91 mg/dL (75-100) 12/20/17 21:11 Calcium 9.3 mg/dL (8.4-10.2) 12/20/17 21:11 Magnesium 1.90 mg/dL (1.7-2.3) 12/21/17 07:42 Total Bilirubin 0.30 mg/dL (0.1-1.2) 12/21/17 07:42 Direct Bilirubin < 0.2 mg/dL (0-0.2) 12/21/17 07:42 Indirect Bilirubin 0.1 mg/dL 12/21/17 07:42 AST 29 units/L (5-40) 12/21/17 07:42 ALT 28 units/L (7-56) 12/21/17 07:42 Alkaline Phosphatase 63 units/L (35-129) 12/21/17 07:42 Total Creatine Kinase 94 units/L (55-170) 12/21/17 07:42 CK-MB (CK-2) 1.3 ng/mL (0.0-4.0) 12/21/17 07:42 CK-MB (CK-2) Rel Index 1.3 (0-4) 12/21/17 07:42 Troponin T < 0.010 ng/mL (0.00-0.029) 12/21/17 07:42 NT-Pro-B Natriuret Pep 12.60 pg/mL (0-900) 12/21/17 07:42 Total Protein 6.5 g/dL (6.3-8.2) 12/21/17 07:42 Albumin 3.8 g/dL (3.9-5) L 12/21/17 07:42 Albumin/Globulin Ratio 1.4 % 12/21/17 07:42 Triglycerides 103 mg/dL (2-149) 12/22/17 07:30 Cholesterol 137 mg/dL (50-199) 12/22/17 07:30 LDL Cholesterol Direct 85 mg/dL (50-130) 12/22/17 07:30 HDL Cholesterol 42 mg/dL (40-59) 12/22/17 07:30 Cholesterol/HDL Ratio 3.26 % 12/22/17 07:30 TSH 1.710 mlU/mL (0.270-4.200) 12/22/17 07:30 Free T4 1.10 ng/dL (0.76-1.46) 12/22/17 07:30 Urine Color Yellow (Yellow) 12/21/17 13:03 Urine Turbidity Clear (Clear) 12/21/17 13:03 Urine pH 6.0 (5.0-7.0) 12/21/17 13:03 Ur Specific [place] 1.013 (1.003-1.030) 12/21/17 13:03 Urine Protein <15 mg/dl mg/dL (Negative) 12/21/17 13:03 Urine Glucose (UA) Neg mg/dL (Negative) 12/21/17 13:03 Urine Ketones Neg mg/dL (Negative) 12/21/17 13:03 Urine Blood Neg (Negative) 12/21/17 13:03 Urine Nitrite Neg (Negative) 12/21/17 13:03 Urine Bilirubin Neg (Negative) 12/21/17 13:03 Urine Urobilinogen < 2.0 mg/dL (<2.0) 12/21/17 13:03 Ur Leukocyte Esterase Sm (Negative) 12/21/17 13:03 Urine WBC (Auto) 15.0 /HPF (0.0-6.0) H 12/21/17 13:03 Urine RBC (Auto) 2.0 /HPF (0.0-6.0) 12/21/17 13:03 U Epithel Cells (Auto) 1.0 /HPF (0-13.0) 12/21/17 13:03 Urine Mucus Few /HPF 12/21/17 13:03 Urine Opiates Screen Presumptive negative 12/21/17 13:03 Urine Methadone Screen Presumptive negative 12/21/17 13:03 Ur Barbiturates Screen Presumptive negative 12/21/17 13:03 Ur Phencyclidine Scrn Presumptive negative 12/21/17 13:03 Ur Amphetamines Screen Presumptive positive 12/21/17 13:03 U Benzodiazepines Scrn Presumptive negative 12/21/17 13:03 Urine Cocaine Screen Presumptive negative 12/21/17 13:03 U Marijuana (THC) Screen Presumptive positive 12/21/17 13:03 Drugs of Abuse Note Disclamer 12/21/17 13:03
--- NOTE | 2017-12-27 15:32 | Progress Note ---
Subjective - Reason for Consult Consult date: 12/27/17 Reason for consult: Psychiatric Follow-up Evaluation - Chief Complaint Chief complaint: "Okay" Patient is a 57 year old male who presents to the ER for generalized weakness. Psychiatry was consulted to see patient for Mood DOs and PTSD. Today the patient is calm and cooperative. Sitter is at bedside. Patient presents less with withdrawn and isolative. Appears to be more positive and verbal. He reports good sleep and appetite. He denies SI/HI's and AVH's, and delusions. He believes that Remeron is helping with his depression. He denies any side effects of his medication. Mental Status Exam - Vital signs Last Vital Signs Temp 97.5 F L 12/27/17 12:09 Pulse 66 12/27/17 12:09 Resp 18 12/27/17 12:09 BP 123/73 12/27/17 12:09 Pulse Ox 98 12/27/17 12:09 - Exam Narrative exam: Mental Status Exam General Appearance: Causally Dressed-hospital gown Eye Contact: Intermittent Orientation: Alert and oriented x 4 ( person, place, time, and situation) Attitude/Behavior: Cooperative Sensorium: Clear Psychomotor & Musculoskeletal Activity: Laying in bed Mood: " Okay." less-withdrawn Affect: Congruent with mood Speech/Language: Regular rate and tone Thought Processes: Circumstantial Thought Content: Reality oriented. Logical. Perception: Patient denies A/V/T hallucinations. Concentration/Attention: Intact Suicidal Ideations/Plan: Patient denies. " No." Homicidal Ideations/Plan: Patient denies. " No." Judgment: Variable Insight: Variable Assessment and Plan Impression: Unspecified Mood DO. Hx of PTSD. Cannabis Use Do. Substance Use DO ( amphetamines). Today the patient is calm and cooperative during the assessment. Presents less withdrawn. The patient denies SI's, but he isn't safe to return to the community at this time. Although patient thought process is more positive today, psychiatry will continue to monitor to ensure safety. The patient was positive for marijuana and amphetamines. DDx: R/O Bipolar DO, MDD, R/O Substance Induced Mood DO Recommendation/Plan: 1. Continue 1013 with placement to inpatient psychiatric services. 2. Continue Remeron 15 mg PO HS for depression/PTSD. Discussed possible suicidality/medication induced michelle with patient reference Remeron. 3. Will monitor mood, sleep, appetite, compliance, and side effects.
[2017-12-27] MEDS: NEURONTIN PO SCH ×2 (15:48→22:32)
[2017-12-27] MEDS: REMERON PO SCH (22:42)
[2017-12-28] MEDS: NEURONTIN PO SCH ×3 (05:54→22:28)
[2017-12-28] MEDS: ZESTRIL PO SCH (10:40)
[2017-12-28] MEDS: LOPRESSOR PO SCH ×2 (10:40→22:27)
--- NOTE | 2017-12-28 11:16 | Progress Note ---
Assessment and Plan Assessment and plan: --History of scabies; no evidence of active scabies infection ID evaluated the patient --Peripheral neuropathy; continue gabapentin and supportive care, --Hypertension; well controlled continue current management --History of bipolar disorder Psych following. --History of depression/anxiety/PTSD Remeron 15 mg daily started by psych. Psychiatry recommends 1013 --History of hypothyroidism; not on any medications add Synthroid, thyroid function tests within normal limits --DVT prophylaxis; Lovenox --Polysubstance abuse; marijuana and amphetamines Counseling done advised to quit recreational drug use Disposition; follow psych evaluation and recommendations The patient is medically clear/stable History Interval history: No new issues overnight. Hospitalist Physical - Constitutional Vitals: Temp Pulse Resp BP Pulse Ox 98.0 F 62 18 99/65 98 12/28/17 05:20 12/28/17 10:40 12/28/17 05:20 12/28/17 10:40 12/28/17 05:20 General appearance: Present: no acute distress, well-nourished - EENT Eyes: Present: PERRL, EOM intact ENT: hearing intact, clear oral mucosa, dentition normal - Neck Neck: Present: supple, normal ROM - Respiratory Respiratory effort: normal Respiratory: bilateral: CTA - Cardiovascular Rhythm: regular Heart Sounds: Present: S1 & S2. Absent: gallop, rub - Extremities Extremities: no ischemia, No edema, Full ROM - Abdominal General gastrointestinal: soft, non-tender, non-distended, normal bowel sounds - Integumentary Integumentary: Present: clear, warm, dry - Neurologic Neurologic: CNII-XII intact, moves all extremities Results - Labs CBC & Chem 7: 12/20/17 21:11 12/20/17 21:11 Labs: Laboratory Last Values WBC 5.1 K/mm3 (4.5-11.0) 12/20/17 21:11 RBC 5.20 M/mm3 (3.65-5.03) H 12/20/17 21:11 Hgb 14.2 gm/dl (11.8-15.2) 12/20/17 21:11 Hct 43.0 % (35.5-45.6) 12/20/17 21:11 MCV 83 fl (84-94) L 12/20/17 21:11 MCH 27 pg (28-32) L 12/20/17 21:11 MCHC 33 % (32-34) 12/20/17 21:11 RDW 14.0 % (13.2-15.2) 12/20/17 21:11 Plt Count 286 K/mm3 (140-440) 12/20/17 21:11 Lymph % (Auto) 37.4 % (13.4-35.0) H 12/20/17 21:11 [place] % (Auto) 9.0 % (0.0-7.3) H 12/20/17 21:11 Eos % (Auto) 1.3 % (0.0-4.3) 12/20/17 21:11 Baso % (Auto) 0.5 % (0.0-1.8) 12/20/17 21:11 Lymph # 1.9 K/mm3 (1.2-5.4) 12/20/17 21:11 [place] # 0.5 K/mm3 (0.0-0.8) 12/20/17 21:11 Eos # 0.1 K/mm3 (0.0-0.4) 12/20/17 21:11 Baso # 0.0 K/mm3 (0.0-0.1) 12/20/17 21:11 Seg Neutrophils % 51.8 % (40.0-70.0) 12/20/17 21:11 Seg Neutrophils # 2.6 K/mm3 (1.8-7.7) 12/20/17 21:11 PT 11.8 Sec. (12.2-14.9) L 12/21/17 07:42 INR 0.83 (0.87-1.13) L 12/21/17 07:42 APTT 26.5 Sec. (24.2-36.6) 12/21/17 07:42 D-Dimer 199.87 ng/mlDDU (0-234) 12/21/17 07:42 Sodium 142 mmol/L (137-145) 12/20/17 21:11 Potassium 4.1 mmol/L (3.6-5.0) 12/20/17 21:11 Chloride 99.2 mmol/L (98-107) 12/20/17 21:11 Carbon Dioxide 31 mmol/L (22-30) H 07/21/18 21:11 Anion Gap 16 mmol/L 12/20/17 21:11 BUN 11 mg/dL (9-20) 12/20/17 21:11 Creatinine 1.0 mg/dL (0.8-1.5) 12/20/17 21:11 Estimated GFR > 60 ml/min 12/20/17 21:11 BUN/Creatinine Ratio 11 % 12/20/17 21:11 Glucose 91 mg/dL (75-100) 12/20/17 21:11 Calcium 9.3 mg/dL (8.4-10.2) 12/20/17 21:11 Magnesium 1.90 mg/dL (1.7-2.3) 12/21/17 07:42 Total Bilirubin 0.30 mg/dL (0.1-1.2) 12/21/17 07:42 Direct Bilirubin < 0.2 mg/dL (0-0.2) 12/21/17 07:42 Indirect Bilirubin 0.1 mg/dL 12/21/17 07:42 AST 29 units/L (5-40) 12/21/17 07:42 ALT 28 units/L (7-56) 12/21/17 07:42 Alkaline Phosphatase 63 units/L (35-129) 12/21/17 07:42 Total Creatine Kinase 94 units/L (55-170) 12/21/17 07:42 CK-MB (CK-2) 1.3 ng/mL (0.0-4.0) 12/21/17 07:42 CK-MB (CK-2) Rel Index 1.3 (0-4) 12/21/17 07:42 Troponin T < 0.010 ng/mL (0.00-0.029) 12/21/17 07:42 NT-Pro-B Natriuret Pep 12.60 pg/mL (0-900) 12/21/17 07:42 Total Protein 6.5 g/dL (6.3-8.2) 12/21/17 07:42 Albumin 3.8 g/dL (3.9-5) L 12/21/17 07:42 Albumin/Globulin Ratio 1.4 % 12/21/17 07:42 Triglycerides 103 mg/dL (2-149) 12/22/17 07:30 Cholesterol 137 mg/dL (50-199) 12/22/17 07:30 LDL Cholesterol Direct 85 mg/dL (50-130) 12/22/17 07:30 HDL Cholesterol 42 mg/dL (40-59) 12/22/17 07:30 Cholesterol/HDL Ratio 3.26 % 12/22/17 07:30 TSH 1.710 mlU/mL (0.270-4.200) 12/22/17 07:30 Free T4 1.10 ng/dL (0.76-1.46) 12/22/17 07:30 Urine Color Yellow (Yellow) 12/21/17 13:03 Urine Turbidity Clear (Clear) 12/21/17 13:03 Urine pH 6.0 (5.0-7.0) 12/21/17 13:03 Ur Specific [place] 1.013 (1.003-1.030) 12/21/17 13:03 Urine Protein <15 mg/dl mg/dL (Negative) 12/21/17 13:03 Urine Glucose (UA) Neg mg/dL (Negative) 12/21/17 13:03 Urine Ketones Neg mg/dL (Negative) 12/21/17 13:03 Urine Blood Neg (Negative) 12/21/17 13:03 Urine Nitrite Neg (Negative) 12/21/17 13:03 Urine Bilirubin Neg (Negative) 12/21/17 13:03 Urine Urobilinogen < 2.0 mg/dL (<2.0) 12/21/17 13:03 Ur Leukocyte Esterase Sm (Negative) 12/21/17 13:03 Urine WBC (Auto) 15.0 /HPF (0.0-6.0) H 12/21/17 13:03 Urine RBC (Auto) 2.0 /HPF (0.0-6.0) 12/21/17 13:03 U Epithel Cells (Auto) 1.0 /HPF (0-13.0) 12/21/17 13:03 Urine Mucus Few /HPF 12/21/17 13:03 Urine Opiates Screen Presumptive negative 12/21/17 13:03 Urine Methadone Screen Presumptive negative 12/21/17 13:03 Ur Barbiturates Screen Presumptive negative 12/21/17 13:03 Ur Phencyclidine Scrn Presumptive negative 12/21/17 13:03 Ur Amphetamines Screen Presumptive positive 12/21/17 13:03 U Benzodiazepines Scrn Presumptive negative 12/21/17 13:03 Urine Cocaine Screen Presumptive negative 12/21/17 13:03 U Marijuana (THC) Screen Presumptive positive 12/21/17 13:03 Drugs of Abuse Note Disclamer 12/21/17 13:03
[2017-12-28] MEDS: REMERON PO SCH (22:28)
[2017-12-29] MEDS: NEURONTIN PO SCH (06:57)
--- NOTE | 2017-12-29 08:45 | Progress Note ---
Assessment and Plan Assessment and plan: --History of scabies; no evidence of active scabies infection ID evaluated the patient --Peripheral neuropathy; continue gabapentin and supportive care, --Hypertension; well controlled continue current management --History of bipolar disorder Psych following. --History of depression/anxiety/PTSD Remeron 15 mg daily started by psych. Psychiatry recommends 1013 --History of hypothyroidism; not on any medications add Synthroid, thyroid function tests within normal limits --DVT prophylaxis; Lovenox --Polysubstance abuse; marijuana and amphetamines Counseling done advised to quit recreational drug use Disposition; follow psych evaluation and recommendations The patient is medically clear/stable History Interval history: No new issues overnight. Hospitalist Physical - Constitutional Vitals: Temp Pulse Resp BP Pulse Ox 98.3 F 59 L 20 105/71 97 12/29/17 05:45 12/29/17 06:12 12/29/17 06:12 12/29/17 06:12 12/29/17 06:12 General appearance: Present: no acute distress, well-nourished - EENT Eyes: Present: PERRL, EOM intact ENT: hearing intact, clear oral mucosa, dentition normal - Neck Neck: Present: supple, normal ROM - Respiratory Respiratory effort: normal Respiratory: bilateral: CTA - Cardiovascular Rhythm: regular Heart Sounds: Present: S1 & S2. Absent: gallop, rub - Extremities Extremities: no ischemia, No edema, Full ROM - Abdominal General gastrointestinal: soft, non-tender, non-distended, normal bowel sounds - Integumentary Integumentary: Present: clear, warm, dry - Neurologic Neurologic: CNII-XII intact, moves all extremities Results - Labs CBC & Chem 7: 12/20/17 21:11 12/20/17 21:11 Labs: Laboratory Last Values WBC 5.1 K/mm3 (4.5-11.0) 12/20/17 21:11 RBC 5.20 M/mm3 (3.65-5.03) H 12/20/17 21:11 Hgb 14.2 gm/dl (11.8-15.2) 12/20/17 21:11 Hct 43.0 % (35.5-45.6) 12/20/17 21:11 MCV 83 fl (84-94) L 12/20/17 21:11 MCH 27 pg (28-32) L 12/20/17 21:11 MCHC 33 % (32-34) 12/20/17 21:11 RDW 14.0 % (13.2-15.2) 12/20/17 21:11 Plt Count 286 K/mm3 (140-440) 12/20/17 21:11 Lymph % (Auto) 37.4 % (13.4-35.0) H 12/20/17 21:11 Gilliam % (Auto) 9.0 % (0.0-7.3) H 12/20/17 21:11 Eos % (Auto) 1.3 % (0.0-4.3) 12/20/17 21:11 Baso % (Auto) 0.5 % (0.0-1.8) 12/20/17 21:11 Lymph # 1.9 K/mm3 (1.2-5.4) 12/20/17 21:11 Gilliam # 0.5 K/mm3 (0.0-0.8) 12/20/17 21:11 Eos # 0.1 K/mm3 (0.0-0.4) 12/20/17 21:11 Baso # 0.0 K/mm3 (0.0-0.1) 12/20/17 21:11 Seg Neutrophils % 51.8 % (40.0-70.0) 12/20/17 21:11 Seg Neutrophils # 2.6 K/mm3 (1.8-7.7) 12/20/17 21:11 PT 11.8 Sec. (12.2-14.9) L 12/21/17 07:42 INR 0.83 (0.87-1.13) L 12/21/17 07:42 APTT 26.5 Sec. (24.2-36.6) 12/21/17 07:42 D-Dimer 199.87 ng/mlDDU (0-234) 12/21/17 07:42 Sodium 142 mmol/L (137-145) 12/20/17 21:11 Potassium 4.1 mmol/L (3.6-5.0) 12/20/17 21:11 Chloride 99.2 mmol/L (98-107) 12/20/17 21:11 Carbon Dioxide 31 mmol/L (22-30) H 12/20/17 21:11 Anion Gap 16 mmol/L 12/20/17 21:11 BUN 11 mg/dL (9-20) 12/20/17 21:11 Creatinine 1.0 mg/dL (0.8-1.5) 12/20/17 21:11 Estimated GFR > 60 ml/min 12/20/17 21:11 BUN/Creatinine Ratio 11 % 12/20/17 21:11 Glucose 91 mg/dL (75-100) 12/20/17 21:11 Calcium 9.3 mg/dL (8.4-10.2) 12/20/17 21:11 Magnesium 1.90 mg/dL (1.7-2.3) 12/21/17 07:42 Total Bilirubin 0.30 mg/dL (0.1-1.2) 12/21/17 07:42 Direct Bilirubin < 0.2 mg/dL (0-0.2) 12/21/17 07:42 Indirect Bilirubin 0.1 mg/dL 12/21/17 07:42 AST 29 units/L (5-40) 12/21/17 07:42 ALT 28 units/L (7-56) 12/21/17 07:42 Alkaline Phosphatase 63 units/L (35-129) 12/21/17 07:42 Total Creatine Kinase 94 units/L (55-170) 12/21/17 07:42 CK-MB (CK-2) 1.3 ng/mL (0.0-4.0) 12/21/17 07:42 CK-MB (CK-2) Rel Index 1.3 (0-4) 12/21/17 07:42 Troponin T < 0.010 ng/mL (0.00-0.029) 12/21/17 07:42 NT-Pro-B Natriuret Pep 12.60 pg/mL (0-900) 12/21/17 07:42 Total Protein 6.5 g/dL (6.3-8.2) 12/21/17 07:42 Albumin 3.8 g/dL (3.9-5) L 12/21/17 07:42 Albumin/Globulin Ratio 1.4 % 12/21/17 07:42 Triglycerides 103 mg/dL (2-149) 12/22/17 07:30 Cholesterol 137 mg/dL (50-199) 12/22/17 07:30 LDL Cholesterol Direct 85 mg/dL (50-130) 12/22/17 07:30 HDL Cholesterol 42 mg/dL (40-59) 12/22/17 07:30 Cholesterol/HDL Ratio 3.26 % 12/22/17 07:30 TSH 1.710 mlU/mL (0.270-4.200) 12/22/17 07:30 Free T4 1.10 ng/dL (0.76-1.46) 12/22/17 07:30 Urine Color Yellow (Yellow) 12/21/17 13:03 Urine Turbidity Clear (Clear) 12/21/17 13:03 Urine pH 6.0 (5.0-7.0) 12/21/17 13:03 Ur Specific Anthony 1.013 (1.003-1.030) 12/21/17 13:03 Urine Protein <15 mg/dl mg/dL (Negative) 12/21/17 13:03 Urine Glucose (UA) Neg mg/dL (Negative) 12/21/17 13:03 Urine Ketones Neg mg/dL (Negative) 12/21/17 13:03 Urine Blood Neg (Negative) 12/21/17 13:03 Urine Nitrite Neg (Negative) 12/21/17 13:03 Urine Bilirubin Neg (Negative) 12/21/17 13:03 Urine Urobilinogen < 2.0 mg/dL (<2.0) 12/21/17 13:03 Ur Leukocyte Esterase Sm (Negative) 12/21/17 13:03 Urine WBC (Auto) 15.0 /HPF (0.0-6.0) H 12/21/17 13:03 Urine RBC (Auto) 2.0 /HPF (0.0-6.0) 12/21/17 13:03 U Epithel Cells (Auto) 1.0 /HPF (0-13.0) 12/21/17 13:03 Urine Mucus Few /HPF 12/21/17 13:03 Urine Opiates Screen Presumptive negative 12/21/17 13:03 Urine Methadone Screen Presumptive negative 12/21/17 13:03 Ur Barbiturates Screen Presumptive negative 12/21/17 13:03 Ur Phencyclidine Scrn Presumptive negative 12/21/17 13:03 Ur Amphetamines Screen Presumptive positive 12/21/17 13:03 U Benzodiazepines Scrn Presumptive negative 12/21/17 13:03 Urine Cocaine Screen Presumptive negative 12/21/17 13:03 U Marijuana (THC) Screen Presumptive positive 12/21/17 13:03 Drugs of Abuse Note Disclamer 12/21/17 13:03
--- NOTE | 2017-12-29 10:22 | Progress Note ---
Subjective - Reason for Consult Consult date: 12/29/17 Reason for consult: Psychiatry Follow-up - Chief Complaint Chief complaint: "I just want to go home" Patient is a 57 year old male who presents to the ER for generalized weakness. Psychiatry was consulted to see patient for Mood DOs and PTSD. Today the patient is calm and cooperative, but withdrawn during the assessment. He would not confirm or deny SI's when asked. He continue to asked to be discharged so he can go home and "isolate" himself. He denies HI's and AVH 's. He denies any side effects of his medications. Mental Status Exam - Vital signs Last Vital Signs Temp 98.3 F 12/29/17 05:45 Pulse 59 L 12/29/17 06:12 Resp 20 12/29/17 06:12 BP 105/71 12/29/17 06:12 Pulse Ox 97 12/29/17 06:12 - Exam Narrative exam: MSE: Appearance: calm, cooperative Behavior: poor eye contact Speech: regular rate and tone Mood: "depressed" withdrawn Affect: congruent to mood Thought Process: circumstantial Thought Content: denies HI's and AVH's Motor Activity: sitting up in bed Cognition: A/O x 3 Insight: variable Judgment: variable Assessment and Plan Impression: Unspecified Mood DO. Hx of PTSD. Cannabis Use Do. Substance Use DO ( amphetamines). Today the patient is calm and cooperative, but still withdrawn during the assessment. The patient will not confirm or deny SI's. DDx: R/O Bipolar DO, MDD, R/O Substance Induced Mood DO Recommendation/Plan: Continue 1013 with placement to [facility] today. Continue Remeron 15 mg PO HS for depression/PTSD. Discussed possible suicidality /medication induced michelle with patient reference Remeron.
[2017-12-29] MEDS: LOPRESSOR PO SCH (11:35)
[2017-12-29 11:36] VITALS: BP 122/77
[2017-12-29] MEDS: ZESTRIL PO SCH (11:36)
--- NOTE | 2017-12-29 11:52 | Discharge Summary ---
Providers - Providers Date of Admission: 12/21/17 12:13 Date of discharge: 12/29/17 Attending physician: SRINIVASAN HERNANDEZ 12/21/17 19:22 psychiatry consult [Consult to Mental Health] [CONS] Routine Reason For Exam: depression/Bipolar/PTSD Place consult to:: corporate communications intern Notified:: Phone number called:: [phone] Was contact made?: Yes If yes, spoke with:: elsy Time called:: 07:50 12/21/17 19:23 Consult to Physician [CONS] Routine Comment: Consulting Provider: JACOB YOUNG Physician Instructions: Reason For Exam: chronic Scabies 12/23/17 10:04 Consult to Mental Health [CONS] Routine Reason For Exam: bipolar Place consult to:: pls Notified:: Phone number called:: [phone] Was contact made?: Yes If yes, spoke with:: nazia Time called:: 08:37 Primary care physician: RN [employer] DEL[employer]ERY Hospitalization Condition: Stable Hospital course: 57-year-old male patient who follows with [facility] and has significant past medical history of hypertension, hypothyroidism, peripheral neuropathy, scabies infection presents to the emergency room with generalized weakness and tingling and numbness of the whole body. Patient denied any chest pain or shortness of breath. Denied nausea vomiting or abdominal pain. Per Dr Simental' s H and P. Pt has been Noncompliant with medications. ID evaluated the patient and there was no evidence of active scabies infection. During hospitalization pt was noted to have hx bipolar disorder/depression/anxiety/ PTSD. Psychiatry was consulted to see patient for Mood DOs and PTSD. Psych recommended [address] the entire hospitalization. Psychh recommended IP Psych. Neuropathy was treated with Neurontin with improvement. [facility] accepted pt. D/C time 32 minutes Disposition: DC-01 TO HOME OR SELFCARE Time spent for discharge: 32 - Discharge Diagnoses (1) Polysubstance abuse Status: Acute (2) Psychiatric disorder Status: Acute Core Measure Documentation - Palliative Care Palliative Care/ Comfort Measures: Not Applicable - Core Measures Any of the following diagnoses?: none Exam - Constitutional Vitals: Temp Pulse Resp BP Pulse Ox 98.3 F 77 20 122/77 97 12/29/17 05:45 12/29/17 11:35 12/29/17 06:12 12/29/17 11:35 12/29/17 06:12 General appearance: Present: no acute distress, well-nourished - EENT Eyes: Present: PERRL ENT: hearing intact, clear oral mucosa - Neck Neck: Present: supple, normal ROM - Respiratory Respiratory effort: normal Respiratory: bilateral: CTA - Cardiovascular Heart Sounds: Present: S1 & S2. Absent: rub, click - Extremities Extremities: pulses symmetrical, No edema Peripheral Pulses: within normal limits - Abdominal General gastrointestinal: Present: soft, non-tender, non-distended, normal bowel sounds Male genitourinary: Present: normal - Integumentary Integumentary: Present: clear, warm, dry - Musculoskeletal Musculoskeletal: gait normal, strength equal bilaterally - Psychiatric Psychiatric: appropriate mood/affect, intact judgment & insight - Neurologic Neurologic: CNII-XII intact, moves all extremities Plan Activity: advance as tolerated Weight Bearing Status: Weight Bear as Tolerated Follow up with: PRIMARY CARE, [Primary Care Provider] - 3-5 Days
== END 2017-12-29 12:30 | DRG 74 ==
LOC: ED 19:19 → 4A 12-21 12:13 → 3A 12-22 00:01
PROVIDERS: ADMIT Internal Medicine; ATTEND Hospitalist
DX: G62.9 Polyneuropathy, unspecified (principal); F31.30 Bipolar disorder, current episode depressed, mild or moderate severity, unspecified; I10 Essential (primary) hypertension; E03.9 Hypothyroidism, unspecified; F12.10 Cannabis abuse, uncomplicated; F15.10 Other stimulant abuse, uncomplicated; F41.9 Anxiety disorder, unspecified; R07.9 Chest pain, unspecified; F43.10 Post-traumatic stress disorder, unspecified; X58.XXXA Exposure to other specified factors, initial encounter; Z82.49 Family history of ischemic heart disease and other diseases of the circulatory system; Z83.3 Family history of diabetes mellitus; Z71.51 Drug abuse counseling and surveillance of drug abuser; Y93.89 Activity, other specified; Y92.89 Other specified places as the place of occurrence of the external cause; Y99.8 Other external cause status
CPT/HCPCS: 36415; 71045; 71046; 80048; 80061; 80074; 80307; 81001; 82550; 82553; 83735; 83880; 84439; 84443; 84484; 85025; 85379; 85610; 85730; 93005; 93010